=== PATIENT | male | born 1990 | race Caucasian/White ===

== ENCOUNTER 2016-07-22 14:55 | Emergency (ER) | payer BC ==
[~2016-07-22] VITALS: Ht 180.3 cm; Wt 69.0 kg
[2016-07-22 15:11] VITALS: Ht 180.3 cm; Wt 69.0 kg
[2016-07-22 19:04] LABS: ADD SCAN DIFF NO
[2016-07-22 19:07] LABS: BASOPHIL # 0.1 10^3/ul (0.0-0.1); BASOPHILS % 0.9 % (0.0-2.0); EOSINOPHILS # 0.3 10^3/ul (0.0-0.5); EOSINOPHILS % 3.7 % (0.0-7.0); HEMOGLOBIN 14.9 g/dl (14.0-18.0); LYMPHOCYTES # 2.6 10^3/ul (0.8-2.9); LYMPHOCYTES % 36.7 % (15.0-51.0); MEAN CORPUSCULAR HGB CONC 34.7 g/dl (32.0-37.0); MEAN CORPUSCULAR VOLUME 86.7 fl (82.0-101.0); MEAN PLATELET VOLUME 10.9 fl (7.4-10.4); MONOCYTE # 0.5 10^3/ul (0.3-0.9); MONOCYTES % 7.7 % (0.0-11.0); NEUTROPHIL # 3.6 10^3/ul (1.6-7.5); NEUTROPHILS % 50.7 % (39.0-77.0); PLATELET COUNT 241 10^3/UL (140-415); RED BLOOD COUNT 4.96 10^6/ul (4.70-6.10); RED CELL DISTRIBUTION WIDTH 12.4 % (11.5-14.5)
[2016-07-22 19:20] LABS: INR 0.99; PROTIME 13.1 Sec (12.2-14.2)
[2016-07-22 19:21] LABS: PARTIAL THROMBOPLASTIN TIME 34.6 Sec (25.0-35.0)
[2016-07-22 19:23] LABS: ALBUMIN 4.9 g/dl (3.3-4.9); CHLORIDE 100 mmol/L (97-110)
--- NOTE | 2016-07-22 19:23 | RADRPT ---
PROCEDURE: XR Chest. CLINICAL INDICATION: Chest pain. TECHNIQUE: Single frontal view of the chest. COMPARISON: None. FINDINGS: The cardiomediastinal silhouette is within normal limits. The lungs are clear. No signs of pleural f luid or pneumothorax are seen. The osseous structures and soft tissues are unremarkable. IMPRESSION: No evidence for active cardiopulmonary disease. RPTAT: [facility] Physician Amilcar Date Time Electronically viewed and signed by Physician Amilcar on 07/22/2016 19:22 RS/
[2016-07-22 19:24] LABS: POTASSIUM 4.3 mmol/L (3.5-5.1); SODIUM 144 mmol/L (135-144)
[2016-07-22 19:26] LABS: ALANINE AMINOTRANSFERASE 38 IU/L (13-69); ALBUMIN/GLOBULIN RATIO 1.36; ALKALINE PHOSPHATASE 76 IU/L (42-121); ANION GAP 18 (8-16); ASPARTATE AMINO TRANSFERASE 34 IU/L (15-46); BILIRUBIN,INDIRECT 0.3 mg/dl (0-1.1); BILIRUBIN,TOTAL 0.3 mg/dl (0.2-1.3); BLOOD UREA NITROGEN 18 mg/dl (7-20); CARBON DIOXIDE 30 mmol/L (21-31); CREATININE 0.72 mg/dl (0.61-1.24); GLUCOSE 102 mg/dl (70-220); TOTAL PROTEIN 8.5 g/dl (6.1-8.1)
[2016-07-22 19:27] LABS: CALCIUM 9.6 mg/dl (8.4-10.2)
[2016-07-22] MEDS ORDERED: ACETAMINOPHEN 325 MG TAB PO ONE (19:30)
[2016-07-22 19:41] LABS: TROPONIN-I < 0.012 ng/ml (0.00-0.12)
[2016-07-22] MEDS ORDERED: IBUP-1542 PO (19:59)
[2016-07-22 20:16] VITALS: BP 126/78; PULSE 78; RESP 20
--- NOTE | 2016-07-22 23:46 | ERD ---
ER Documentation Chief Complaint Date/Time DATE: 07/22/16 TIME: 23:39 Chief Complaint Pt with CP raditing to back X 2 hours. HPI This patient is a 26-year-old male with no significant medical history presenting to the emergency department for midsternal chest pain which is intermittent and began yesterday evening. He describes it as a soreness. He states the pain radiates bilateral shoulder blades. Symptoms are aggravated by eating heavy meals. He does have a history of heartburn but he states this episode feels different. He denies all other symptoms currently. ROS All systems reviewed and are negative except as per history of present illness. Medications Home Meds Active Scripts Ibuprofen* (Motrin*) 600 Mg Tab, 600 MG PO Q6, #30 TAB Prov:DA CABRAL PA-C 07/22/16 Allergies Allergies: Coded Allergies: No Known Allergy (Unverified , 07/22/16) PMhx/Soc Medical and Surgical Hx: pt denies Medical Hx, pt denies Surgical Hx Hx Alcohol Use: No Hx Substance Use: No Hx Tobacco Use: No Smoking Status: Never smoker FmHx Noncontributory for chief complain Physical Exam Vitals Vital Signs Date Time Temp Pulse Resp B/P Pulse Ox O2 Delivery O2 Flow Rate FiO2 07/22/16 20:16 78 20 126/78 100 Room Air 07/22/16 15:11 98.3 89 14 131/63 99 Physical Exam Const: The patient is resting comfortably in no acute distress. Head: Atraumatic Eyes: Normal Conjunctiva ENT: Normal External Ears, Nose and Mouth. Neck: Full range of motion..~ No meningismus. Resp: Clear to auscultation bilaterally Cardio: Regular rate and rhythm, no murmurs Abd: Soft, non tender, non distended. Normal bowel sounds Skin: No petechiae or rashes Back: No midline or flank tenderness Ext: No cyanosis, or edema Neur: Awake and alert Psych: Normal Mood and Affect Result Diagram: 07/22/16189907/22/161899 Results 24 hrs Laboratory Tests Test 07/22/16 19:00 White Blood Count 7.010^3/ul Red Blood Count 4.9610^6/ul Hemoglobin 14.9g/dl Hematocrit 43.0% Mean Corpuscular Volume 86.7fl Mean Corpuscular Hemoglobin 30.0pg Mean Corpuscular Hemoglobin Concent 34.7g/dl Red Cell Distribution Width 12.4% Platelet Count 54648^3/UL Mean Platelet Volume 10.9fl Neutrophils % 50.7% Lymphocytes % 36.7% Monocytes % 7.7% Eosinophils % 3.7% Basophils % 0.9% Nucleated Red Blood Cells % 0.0/100WBC Neutrophils # 3.610^3/ul Lymphocytes # 2.610^3/ul Monocytes # 0.510^3/ul Eosinophils # 0.310^3/ul Basophils # 0.110^3/ul Nucleated Red Blood Cells # 0.010^3/ul Prothrombin Time 13.1Sec Prothrombin Time Ratio 1.0 INR International Normalized Ratio 0.99 Activated Partial Thromboplast Time 34.6Sec Sodium Level 144mmol/L Potassium Level 4.3mmol/L Chloride Level 100mmol/L Carbon Dioxide Level 30mmol/L Anion Gap 18 Blood Urea Nitrogen 18mg/dl Creatinine 0.72mg/dl Glucose Level 102mg/dl Calcium Level 9.6mg/dl Total Bilirubin 0.3mg/dl Direct Bilirubin 0.00mg/dl Indirect Bilirubin 0.3mg/dl Aspartate Amino Transf (AST/SGOT) 34IU/L Alanine Aminotransferase (ALT/SGPT) 38IU/L Alkaline Phosphatase 76IU/L Troponin I < 0.012ng/ml Total Protein 8.5g/dl Albumin 4.9g/dl Globulin 3.60g/dl Albumin/Globulin Ratio 1.36 Current Medications Medications (Trade) Dose Ordered Sig/Dimitri Route PRN Reason Start Time Stop Time Status Last Admin Dose Admin Acetaminophen (Tylenol Tab) 650 mg ONCE ONCE PO 07/22/16 19:30 07/22/16 19:31 DC 07/22/16 19:37 PROCEDURE: XR Chest. CLINICAL INDICATION: Chest pain. TECHNIQUE: Single frontal view of the chest. COMPARISON: None. FINDINGS: The cardiomediastinal silhouette is within normal limits. The lungs are clear. No signs of pleural fluid or pneumothorax are seen. The osseous structures and soft tissues are unremarkable. IMPRESSION: No evidence for active cardiopulmonary disease. RPTAT: [facility] Physician Amiclar Date Time Electronically viewed and signed by Physician Amilcar on 07/22/2016 19:22 RS/ CC: DA CABRAL PA-C Procedures/MDM 18-year-old male presents to the emergency department secondary to complaints of chest pain. On physical examination the patient's vitals are within normal limits. The remainder of the clinical examination shows no abnormalities. Lab results showed no significant acute abnormalities. Troponin was negative for any signs of acute coronary ischemia. EKG: Interpreted by ED physician Rate/Rhythm: Normal sinus rhythm with a rate of 73 bpm. QRS, ST, T-waves: No changes consistent w/ acute ischemia Impression: No evidence of ischemia or arrhythmia Chest x-ray was negative for any infiltrates or other abnormalities. All diagnostic results were shared with the patient and he understood them. The patient was stable for outpatient management after workup in the department. Strict ER return precautions were discussed and the patient demonstrates good understanding. The patient is to have close follow-up with his primary care physician and possibly a environmental department manager if this pain continues. All questions and concerns were addressed and the patient agreed with the discharge plan and diagnosis. The history, physical examination, and diagnostic workup was shared with Dr. Anderson, who agreed with the overall ED course. Departure Diagnosis: Primary Impression: Chest wall pain Condition: Fair Patient Instructions: Chest Wall Pain, Costochondritis Referrals: COUNT INCLUDES THE [facility] YOU HAVE RECEIVED A MEDICAL SCREENING EXAM AND THE RESULTS INDICATE THAT YOU DO NOT HAVE A CONDITION THAT REQUIRES URGENT TREATMENT IN THE EMERGENCY DEPARTMENT. FURTHER EVALUATION AND TREATMENT OF YOUR CONDITION CAN WAIT UNTIL YOU ARE SEEN IN YOUR DOCTORS OFFICE WITHIN THE NEXT 1-2 DAYS. IT IS YOUR RESPONSIBILITY TO MAKE AN APPOINTMENT FOR [facility]ARE. IF YOU HAVE A PRIMARY DOCTOR --you should call your primary doctor and schedule an appointment IF YOU DO NOT HAVE A PRIMARY DOCTOR YOU CAN CALL OUR PHYSICIAN REFERRAL HOTLINE AT IF YOU CAN NOT AFFORD TO SEE A PHYSICIAN YOU CAN CHOSE FROM THE FOLLOWING COUNT INCLUDES THE [facility] [address] [facility] [address] [facility] [address] [facility] [facility] [address] [facility]. [facility] [address] [facility]. [facility]. [address] Additional Instructions: Follow up with your PCP within the next 1-3 days for a more thorough evaluation and a possible referral to a specialist. Return the the emergency department immediately if symptoms worsen or change. If you have any questions regarding medications, ask your pharmacist or us before you leave. If any adverse reactions, occur while taking your medications, discontinue the treatment and return to the emergency department immediately. If any new or worsening symptoms, uncontrolled fevers, or other unexplained symptoms occur, return to the emergency department immediately. Take your medications as directed, and complete the entire course of treatment. DA CABRAL PA-C July 22, 2016 23:46
== END 2016-07-22 20:16 | disposition home or self-care (01) ==
LOC: FTE 14:55
DX: R07.89 Other chest pain (principal)
CPT/HCPCS: 71010; 80053; 84484; 85025; 85610; 85730; 93005